=== PATIENT | female | born 1960 | race Caucasian/White ===

== ENCOUNTER 2018-12-30 13:47 | Emergency (ER) | payer BC, OTHER ==
--- NOTE | 2018-12-30 14:47 | EDM.PDOC ---
ED HPI GENERAL MEDICAL PROBLEM - General Chief Complaint: Laceration Stated Complaint: laceration Time Seen by Provider: 12/30/18 13:50 Source of Information: Reports: Patient History Limitations: Reports: No Limitations - History of Present Illness INITIAL COMMENTS - FREE TEXT/NARRATIVE: Patient is a 58-year-old who cut her left fifth finger with a cut ox cutter and the bleeding was not stopping at this time pressure was applied and clean in saline with Betadine patient bleeding stopped at this time patient was examined and the finger was treated with Dermabond this happened while working at [employer] Onset: Today, Sudden Duration: Minutes:, Improving Location: Reports: Upper Extremity, Left Quality: Reports: Ache Severity: Mild Improves with: Reports: Immobilization Worsens with: Reports: None Context: Reports: Trauma 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 ED EXAM, SKIN/RASH Exam: See Below Exam Limited By: No Limitations General Appearance: Alert, WD/WN, No Apparent Distress Ears: Normal External Exam, Normal Canal, Hearing Grossly Normal, Normal TMs Nose: Normal Inspection, Normal Mucosa, No Blood Throat/Mouth: Normal Inspection, Normal Lips, Normal Teeth, Normal Gums, Normal Oropharynx, Normal Voice, No Airway Compromise Head: Atraumatic, Normocephalic Neck: Normal Inspection, Supple, Non-Tender, Full Range of Motion Respiratory/Chest: No Respiratory Distress, Lungs Clear, Normal Breath Sounds, No Accessory Muscle Use, Chest Non-Tender Cardiovascular: Normal Peripheral Pulses, Regular Rate, Rhythm, No Edema, No Gallop, No JVD, No Murmur, No Rub GI/Abdominal: Normal Bowel Sounds, Soft, Non-Tender, No Organomegaly, No Distention, No Abnormal Bruit, No Mass (Female) Exam: Normal External Exam, Normal Speculum Exam, Normal Bimanual Exam Rectal (Female) Exam: Normal Exam, Normal Rectal Tone Back Exam: Normal Inspection, Full Range of Motion, NT Extremities: Normal Range of Motion, Non-Tender, No Pedal Edema, Normal Capillary Refill, Other (Small laceration distal aspect of index finger) Neurological: Alert, Oriented, CN II-XII Intact, Normal Cognition, Normal Gait, Normal Reflexes, No Motor/Sensory Deficits Psychiatric: Normal Affect, Normal Mood Lymphatic: No Adenopathy ED SKIN PROCEDURES - Laceration/Wound Repair Left Distal Digit - 5th (Baby) Lac/Wound length In cm: 0.5 Appearance: Superficial Distal NVT: Neuro & Vascular Intact Skin Prep: Providone-Iodine (Betadine) Exploration/Debridement/Repair: In a Bloodless Field Closed with: Wound Adhesive, Dermabond Departure - Departure Time of Disposition: 14:47 Disposition: Home, Self-Care 01 Condition: Fair Clinical Impression: Laceration - Discharge Information Referrals: Nohemi Sahu, FAMILY HEALTH NURSE PRACTITIONER [Primary Care Provider] - Care Plan Goals: Dermabond was applied to the fifth finger and a dressing applied patient will be sent home we'll need to use gloves to work follow-up in 10 days if not better
== END 2018-12-30 15:05 | disposition home or self-care (01) ==
LOC: LL.ED 13:47
DX: S61.217A Laceration without foreign body of left little finger without damage to nail, initial encounter (principal); Z79.899 Other long term (current) drug therapy; W26.8XXA Contact with other sharp object(s), not elsewhere classified, initial encounter
CPT/HCPCS: 12001; 99283

== ENCOUNTER 2019-12-04 13:20 | Emergency (ER) | payer MEDICAID, OTHER ==
[2019-12-04] MEDS ORDERED: Ketorolac 60 MG/2 ML SDV IM ONE (14:00)
[2019-12-04] MEDS ORDERED: methylPREDNISolone Sodium Succinate 125 MG/2 ML SDV IM ONE (14:00)
--- NOTE | 2019-12-04 14:28 | EDM.PDOC ---
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 Has had issues before with this same pain and it has involved Work Comp. No acute new changes, pattern of pain is the same as usual. Reports pain is bilateral, in lumbar area. Periodically can shoot down buttocks when performing certain movements. Denies numbness/tingling of legs. No history of bowel/bladder issues or incontinence. States in past it usually responds well to rest/medication. Has had extensive workup in past for the back pain, including plain films and MRI studies. Has had injections in past. - Related Data Allergies Allergy/AdvReac Type Severity Reaction Status Date / Time No Known Allergies Allergy Verified 12/30/18 13:54 Home Meds: Home Meds ALPRAZolam [Alprazolam] 0.5 mg PO BEDTIME 12/30/18 [History] Omeprazole 20 mg PO BEDTIME 12/30/18 [History] Sertraline [Zoloft] 200 mg PO BEDTIME 12/30/18 [History] Simvastatin 10 mg PO BEDTIME 12/30/18 [History] cloNIDine [Catapres] 0.1 mg PO BEDTIME 12/30/18 [History] traZODone HCl [Trazodone HCl] 50 mg PO BEDTIME 12/30/18 [History] Cyclobenzaprine [Flexeril] 10 mg PO TID PRN #10 tab 12/04/19 [Rx] traMADol [Ultram] 50 mg PO Q6H PRN #10 tab 12/04/19 [Rx] Past Medical History Cardiovascular History: Reports: High Cholesterol, Hypertension Respiratory History: Reports: Other (See Below) (Tobacco user) Gastrointestinal History: Reports: GERD Musculoskeletal History: Reports: Back Pain, Chronic Psychiatric History: Reports: Anxiety (insomnia) Social & Family History - Tobacco Use Smoking Status *Q: Current Every Day Smoker Years of Tobacco use: 44 Packs/Tins Daily: 0.5 Smoking Cessation Information Provided To Patient: Patient Refused - Caffeine Use Caffeine Use: Reports: None - Recreational Drug Use Recreational Drug Use: No Drug Use in Last 12 Months: No ED ROS GENERAL - Review of Systems Review Of Systems: See Below Constitutional: Reports: No Symptoms HEENT: Reports: Glasses Respiratory: Reports: No Symptoms Cardiovascular: Reports: No Symptoms GI/Abdominal: Reports: No Symptoms : Reports: No Symptoms Musculoskeletal: Reports: Back Pain Skin: Reports: No Symptoms Neurological: Reports: Difficulty Walking (due to back pain). Denies: Numbness, Paresthesia, Tingling, Trouble Speaking Psychiatric: Reports: No Symptoms Hematologic/Lymphatic: Reports: No Symptoms ED EXAM, GENERAL - Physical Exam Exam: See Below Exam Limited By: No Limitations General Appearance: Alert, WD/WN, No Apparent Distress Eye Exam: Bilateral Eye: EOMI, PERRL Ears: Hearing Grossly Normal Nose: No: Nasal Deformity, Nasal Swelling, Nasal Drainage Head: Atraumatic, Normocephalic Neck: Supple, Full Range of Motion Respiratory/Chest: No Respiratory Distress, No Accessory Muscle Use, Chest Non- Tender, Other (faint expiratory wheeze on left) Cardiovascular: Regular Rate, Rhythm, No Murmur GI/Abdominal: Normal Bowel Sounds, Soft, Non-Tender, No Distention (Female) Exam: Deferred Rectal (Female) Exam: Deferred Back Exam: Paraspinal Tenderness (bilaterally lower back in lumbar area, equal bilaterally, no gluteal tenderness). No: CVA Tenderness (L), CVA Tenderness (R), Muscle Spasm, Vertebral Tenderness Extremities: Normal Range of Motion, Non-Tender, Normal Capillary Refill Neurological: Alert, Oriented, Normal Cognition, No Motor/Sensory Deficits, Other (mildly antalgic gait, patient rubbing lumbar area due to discomfort) Psychiatric: Normal Affect, Normal Mood Skin Exam: Warm, Dry, Intact, Normal Color Course - Vital Signs Last Recorded V/S: Last Vital Signs Temp 37.1 C 12/04/19 13:25 Pulse 83 12/04/19 13:25 Resp 16 12/04/19 13:25 BP 148/90 H 12/04/19 13:25 Pulse Ox 97 12/04/19 13:25 - Orders/Labs/Meds Meds: Medications Discontinued Medications Generic Name Dose Route Start Last Admin Trade Name Freq PRN Reason Stop Dose Admin Ketorolac Tromethamine 60 mg 12/04/19 14:00 12/04/19 14:15 Toradol IM 12/04/19 14:01 60 mg ONETIME ONE Administration Methylprednisolone Sodium Succinate 125 mg 12/04/19 14:00 12/04/19 14:15 Solu-Medrol IM 12/04/19 14:01 125 mg ONETIME ONE Administration - Re-Assessments/Exams Free Text/Narrative Re-Assessment/Exam: Pt reports extensive workup of the back pain in past, including advanced imaging studies. Given MRI evaluation in past and lack of any recent trauma, she was not considered for plain films of spine today as it would be low yield. Conservative treatment for now. IM Solumedrol and Toradol given in ER. No work for the next two days. To follow up at primary clinic this Wednesday for recheck and further work restrictions as needed. Very small amount of Tramadol and Flexeril dispensed (10 tabs each) to help with muscle pain and tightness. She does take Benzos at night to help with sleep/anxiety and was strongly cautioned that the potential sedative effects from taking combination of the three. Lifestyle strategies to help improve chr onic pain/anxiety also reviewed. Patient in agreement with plan. Departure - Departure Time of Disposition: 14:26 Disposition: Home, Self-Care 01 Condition: Good Clinical Impression: Acute exacerbation of chronic low back pain - Discharge Information *PRESCRIPTION DRUG MONITORING PROGRAM REVIEWED*: Not Applicable *COPY OF PRESCRIPTION DRUG MONITORING REPORT IN PATIENT ADONAY: Not Applicable Prescriptions: Cyclobenzaprine [Flexeril] 10 mg PO TID PRN #10 tab PRN Reason: Spasms traMADol [Ultram] 50 mg PO Q6H PRN #10 tab PRN Reason: Pain Referrals: Nohemi Sahu, TITLE ASSISTANT [Primary Care Provider] - Forms: ED Department Discharge Additional Instructions: Take it easy for a few days. See if you can make a follow up appointment at the clinic late Wednesday for recheck and further work restrictions as needed. You were given a shot of steroid today to help with any inflammation/swelling. 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 Ok to do your usual OTC strategies to help with the pain/ice etc. Follow up otherwise as needed for acute changes/problems. Sepsis Event Note (ED) - Evaluation Sepsis Screening Result: No Definite Risk - Focused Exam Vital Signs: Vital Signs Temp Pulse Resp BP Pulse Ox 12/04/19 13:25 37.1 C 83 16 148/90 H 97
== END 2019-12-04 14:30 | disposition home or self-care (01) ==
LOC: LL.ED 13:20
DX: G89.29 Other chronic pain (principal); M54.5 Low back pain; E78.00 Pure hypercholesterolemia, unspecified; I10 Essential (primary) hypertension; K21.9 Gastro-esophageal reflux disease without esophagitis; F41.9 Anxiety disorder, unspecified; F17.210 Nicotine dependence, cigarettes, uncomplicated; Z79.899 Other long term (current) drug therapy
CPT/HCPCS: 96372; 99283; J1885; J2930